=== PATIENT | female | born 1950 | race Caucasian/White ===

== ENCOUNTER 2022-04-04 18:47 | Emergency (ER) | payer MEDICARE, OTHER ==
[2022-04-04] MEDS ORDERED: ALBUTEROL NEB 2.5 MG/3 ML INH STA (19:20)
[2022-04-04] MEDS ORDERED: ONDANSETRON 4 MG/2 ML VIAL IVP STA (19:22)
--- NOTE | 2022-04-04 19:22 | ED Physician Documentation ---
PD HPI DYSPNEA - Stated complaint Stated Complaint: SOA/VOM/IRREGULAR HEARTBEAT - Chief complaint Chief Complaint: Cardiac - History obtained from History obtained from: Patient - Additional information Additional information: 72-year-old woman has been having trouble with palpitations for the last few months has not had it worked up. It is intermittent and occasional and fleeting when it happens. She got back from [facility] yesterday after a trip. Tested COVID negative yesterday. Today she was in her usual state of health until 3 PM sitting at her desk when she suddenly developed severe chills and shortness of breath. It is not associated with chest pain or increase in her palpitations. No pedal edema or calf pain. No personal history of coronary disease but risk factors include a younger brother who had coronary disease and hypertension and hypercholesterolemia. Review of Systems Ten Systems: 10 systems reviewed and negative Constitutional: reports: Chills Nose: denies: Rhinorrhea / runny nose Cardiac: denies: Chest pain / pressure Respiratory: reports: Dyspnea. denies: Cough PD PAST MEDICAL HISTORY - Present Medications Home Medications: Ambulatory Orders Medication Instructions Recorded Confirmed Albuterol Sulf [Ventolin Hfa 1 - 2 puffs INH Q4HR PRN #1 inhaler 04/04/22 Inhaler] Atorvastatin Calcium 40 mg PO DAILY 04/04/22 04/04/22 Losartan [Cozaar] 50 mg PO DAILY #60 tablet 04/04/22 hydroCHLOROthiazide [Hydrodiuril] 12.5 mg PO DAILY 04/04/22 04/04/22 - Allergies Allergies/Adverse Reactions: Allergies Allergy/AdvReac Type Severity Reaction Status Date / Time codeine Allergy Unknown Verified 04/04/22 19:02 PD ED PE NORMAL - Vitals Vital signs reviewed: Yes - General General: Alert and oriented X 3, No acute distress - HEENT HEENT: PERRL, EOMI - Neck Neck: Supple, no meningeal sign, No bony TTP - Cardiac Cardiac: No murmur, Other (Frequent PVCs on the monitor corresponding to ectopy by physical exam.) - Respiratory Respiratory: No respiratory distress, Other (Mild diffuse expiratory wheezing especially at the bases) - Abdomen Abdomen: Non tender - Back Back: No CVA TTP, No spinal TTP - Derm Derm: Normal color, Warm and dry - Extremities Extremities: No edema, No calf tenderness / cord - Neuro Neuro: Alert and oriented X 3, Normal speech Results - Vitals Vitals: Vital Signs - 24 hr 04/04/22 04/04/22 04/04/22 19:03 19:07 19:37 Temperature 37.2 C 37.2 C Heart Rate 77 77 66 Respiratory 21 21 17 Rate Blood Pressure 149/99 H 149/99 H 154/87 H O2 Saturation 100 100 100 04/04/22 04/04/22 04/04/22 19:47 20:07 20:30 Temperature Heart Rate 74 68 72 Respiratory 16 14 22 Rate Blood Pressure 157/72 H 164/74 H O2 Saturation 100 99 04/04/22 21:26 Temperature Heart Rate 69 Respiratory 16 Rate Blood Pressure 170/69 H O2 Saturation 98 Oxygen O2 Source Room air - EKG (time done) 1910 Rate: Rate (enter#) (86) Rhythm: NSR (With frequent PVCs) [place]: Normal Intervals: Normal [place] QRS: Normal Ischemia: Normal ST segments - Labs Labs: Laboratory Tests 04/04/22 04/04/22 04/04/22 19:38 19:38 19:38 WBC 5.3 RBC 5.01 Hgb 15.8 Hct 45.9 MCV 91.6 MCH 31.5 H MCHC 34.4 RDW 11.9 L Plt Count 179 MPV 10.6 Neut # (Auto) 4.0 Lymph # (Auto) 0.9 L [place] # (Auto) 0.3 Eos # (Auto) 0.0 Baso # (Auto) 0.0 Absolute Nucleated RBC 0.00 Nucleated RBC % 0.0 Sodium 135 Potassium 2.9 L Chloride 102 Carbon Dioxide 19 L Anion Gap 14.0 H BUN 16 Creatinine 0.6 Estimated GFR (MDRD) 98 Glucose 160 H Calcium 9.1 Magnesium 1.8 Total Bilirubin 1.5 H AST 21 ALT 17 Alkaline Phosphatase 61 Troponin I High Sens 4.9 Total Protein 7.0 Albumin 4.1 Globulin 2.9 Albumin/Globulin Ratio 1.4 Lipase 32 TSH 04/04/22 19:38 WBC RBC Hgb Hct MCV MCH MCHC RDW Plt Count MPV Neut # (Auto) Lymph # (Auto) [place] # (Auto) Eos # (Auto) Baso # (Auto) Absolute Nucleated RBC Nucleated RBC % Sodium Potassium Chloride Carbon Dioxide Anion Gap BUN Creatinine Estimated GFR (MDRD) Glucose Calcium Magnesium Total Bilirubin AST ALT Alkaline Phosphatase Troponin I High Sens Total Protein Albumin Globulin Albumin/Globulin Ratio Lipase TSH 0.79 PD MEDICAL DECISION MAKING - ED course ED course: She had a chest cold, s/p tx with amox. Now wheezing with SOA after long plance trip. No e/o ACS. A lot of PVCs and likely subacute given the complaint is subacute and worse d/t hypokalemia. PE considered given proximity to plane travel, (back from [facility] yesterday), but CT PA neg. Given both IV and PO KCL. SOA better p albuterol neb. Departure - Departure Disposition: Home, Self Care Clinical Impression: PVC (premature ventricular contraction), Wheezes Dyspnea Qualifiers: Dyspnea type: other forms of dyspnea Qualified Code(s): R06.09 - Other forms of dyspnea Condition: Good Record reviewed to determine appropriate education?: Yes Instructions: ED Dyspnea Shortness of Breath Prescriptions: Albuterol Sulf [Ventolin Hfa Inhaler] 1 - 2 puffs INH Q4HR PRN #1 inhaler PRN Reason: Shortness Of Air/Wheezing Losartan [Cozaar] 50 mg PO DAILY #60 tablet Comments: As discussed, the only major pertinent positive finding tonight was a fairly low potassium level which I think is contributing to the premature ventricular cont ractions you have been having. This is likely multifactorial from the vomiting but also related to your hydrochlorothiazide. As such we are switching your blood pressure medicine and I would stop the hydrochlorothiazide and instead I am prescribing losartan. Also since he got relief from the breathing treatment here I am prescribing an albuterol inhaler. Stop the hydrochlorothiazide. Follow-up with your new primary care physician as soon as possible. Return if worse. [facility] [place].
[2022-04-04 19:49] LABS: BASOPHILS % (AUTO) 0.2 %; EOSINOPHILS % (AUTO) 0.8 %; HCT - HEMATOCRIT 45.9 % (37.0-47.0); HGB - HEMOGLOBIN 15.8 g/dL (12.0-16.0); LYMPHOCYTES # (AUTO) 0.9 10^3/uL (1.5-3.5); LYMPHOCYTES % (AUTO) 16.5 %; MEAN CORPUSCULAR HEMOGLOBIN 31.5 pg (27.0-31.0); MEAN CORPUSCULAR HGB CONC 34.4 g/dL (32.0-36.0); MEAN CORPUSCULAR VOLUME 91.6 fL (81.0-99.0); MEAN PLATELET VOLUME 10.6 fL (7.9-10.8); MONOCYTES # (AUTO) 0.3 10^3/uL (0.0-1.0); MONOCYTES % (AUTO) 6.1 %; NEUTROPHILS % (AUTO) 76.2 %; PLT - PLATELET COUNT 179 10^3/uL (130-450); RED BLOOD COUNT 5.01 10^6/uL (4.20-5.40); RED CELL DISTRIBUTION WIDTH 11.9 % (12.0-15.0); WHITE BLOOD COUNT 5.3 x10^3/uL (4.8-10.8)
[2022-04-04 20:01] LABS: ALBUMIN 4.1 g/dL (3.2-5.5); ALBUMIN/GLOBULIN RATIO 1.4 (1.0-2.2); BILIRUBIN,TOTAL 1.5 mg/dL (0.2-1.0); CALCIUM 9.1 mg/dL (8.5-10.3); CREATININE 0.6 mg/dL (0.4-1.0); MAGNESIUM 1.8 mg/dL (1.7-2.8); POTASSIUM 2.9 mmol/L (3.5-5.0)
[2022-04-04] MEDS ORDERED: IOVERSOL 320 100 ML VIAL IVP ONE ×2 (20:34→21:10)
[2022-04-04] MEDS ORDERED: POTASSIUM CHLORIDE 20 MEQ TABLET PO STA (21:06)
[2022-04-04] MEDS ORDERED: POTASSIUM CHLOR 10 MEQ/100 ML 10 MEQ/100 ML BAG IV STA (21:06)
--- NOTE | 2022-04-04 21:52 | CT Report ---
PROCEDURE: ANGIO CHEST W/WO INDICATIONS: dyspnea pe protocol CONTRAST: IV CONTRAST: Optiray 320 ml: 80 PO CONTRAST: *NO PO CONTRAST TECHNIQUE: After the administration of intravenous contrast, 2 mm axial images were acquired from the pulmonary apices to the posterior costophrenic angles during the arterial phase. In addition, 1 mm lung kernel and 5 mm soft tissue kernel reconstructions were performed. 3-dimensional coronal oblique maximum int ensity projection (MIP) reformats, 8 mm axial MIP, and 5 mm coronal and sagittal MPR reformats were t hen performed through the thorax. For radiation dose reduction, the following was used: automated exp osure control, adjustment of mA and/or kV according to patient size. COMPARISON: None. FINDINGS: Image quality: Excellent. Pulmonary arteries: Pulmonary arteries demonstrate no intraluminal filling defects to suggest centra l pulmonary embolism. Lungs and pleura: Lungs are clear without acute consolidation. No pleural effusions or pneumothorax . Central and peripheral airways are patent. Mediastinum: Heart size is normal, without pericardial effusion. No mediastinal or hilar adenopathy . Thoracic aorta is normal in caliber and enhancement. Esophagus is normal in caliber, without hiat al hernia. Bones and chest wall: No suspicious bony lesions. Ribs and thoracic spine appear intact throughout. No axillary or supraclavicular adenopathy. Thyroid demonstrates no discrete nodules. Abdomen: Visu alized upper abdominal solid organs appear normal in the early arterial phase of enhancement. IMPRESSION: 1. No evidence of pulmonary embolism. 2. No acute airspace consolidation. Reviewed by: Scott Wallis MD on 04/04/2022 9:51 PM PDT Approved by: Scott Wallis MD on 04/04/2022 9:51 PM PDT Station ID: [id number]
[2022-04-04] MEDS ORDERED: SODIUM CHLORIDE 0.9% 1,000 ML IV STA (22:05)
[2022-04-04] MEDS ORDERED: SODIUM CHLORIDE 0.9% 250 ML IV STA (22:05)
[2022-04-05 00:58] VITALS: BP 140/74
== END 2022-04-04 23:55 | disposition home or self-care (01) ==
LOC: ED 18:47
DX: I49.3 Ventricular premature depolarization (principal); R06.09 Other forms of dyspnea
CPT/HCPCS: 36415; 71275; 80053; 83690; 83735; 84443; 84484; 85025; 93005; 94640; 94664; 96365; 96366; 96375; 99284; A9270; Q9967

== ENCOUNTER 2022-06-06 12:37 | Outpatient (CLI) | payer MEDICARE, OTHER ==
--- NOTE | 2022-06-12 10:21 | Mammography Report ---
BILATERAL DIGITAL SCREENING MAMMOGRAM 3D/2D: 06/06/2022 CLINICAL: Routine screening. Additional films were requested but not obtained. The tissue of both breasts is heterogeneously dens e. This may lower the sensitivity of mammography. There is an oval focal asymmetry in the right breast at 10 o'clock middle depth. No other significant masses, calcifications, or other findings are seen in either breast. IMPRESSION: INCOMPLETE: NEED PRIOR STUDIES FOR COMPARISON The oval focal asymmetry in the right breast is indeterminate. Additional views with possible ultras ound are recommended. Based on the Tyrer Cuzick model (a risk assessment model) the patients lifetime risk is 5.7% and her 10 year risk is 4.7%. According to the ACR, ACS, and NCCN guidelines, an annual breast MRI exam doug g with mammogram is recommended if the patients lifetime risk is 20% or greater. This exam was interpreted at Station ID: [id number]. NOTE: For mammograms, a report in lay terms will be sent to the patient. Approximately 15% of breast malignancies will not be visualized mammographically. In the management of a palpable breast mass, a negative mammogram must not discourage biopsy of a clinically suspicious lesion. Electronically Signed By: Royer bael/yaima:06/12/2022 08:17:02 ACR BI-RADS Category 0 Need prior studies for comparison [id number] PARENCHYMAL PATTERN: (D) - The breast(s) demonstrate(s) heterogeneously dense fibroglandular parwestony betsy. BI-RADS CATEGORY: (0) - 0 Mammo and [place] [id number] Immediate follow-up LATERALITY: (R)
== END 2022-06-06 12:38 | disposition home or self-care (01) ==
LOC: DI.N 12:37
PROVIDERS: ATTEND Physician Assistant
DX: Z12.31 Encounter for screening mammogram for malignant neoplasm of breast (principal); R92.8 Other abnormal and inconclusive findings on diagnostic imaging of breast

== ENCOUNTER 2022-08-28 11:50 | Outpatient (CLI) | payer MEDICARE, OTHER ==
[2022-08-28 12:12] LABS: BASOPHILS % (AUTO) 0.4 %; EOSINOPHILS # (AUTO) 0.1 10^3/uL (0.0-0.7); EOSINOPHILS % (AUTO) 1.1 %; HCT - HEMATOCRIT 44.4 % (37.0-47.0); HGB - HEMOGLOBIN 14.3 g/dL (12.0-16.0); LYMPHOCYTES # (AUTO) 1.3 10^3/uL (1.5-3.5); LYMPHOCYTES % (AUTO) 22.3 %; MEAN CORPUSCULAR HEMOGLOBIN 31.4 pg (27.0-31.0); MEAN CORPUSCULAR HGB CONC 32.2 g/dL (32.0-36.0); MEAN CORPUSCULAR VOLUME 97.6 fL (81.0-99.0); MONOCYTES # (AUTO) 0.4 10^3/uL (0.0-1.0); MONOCYTES % (AUTO) 6.2 %; NEUTROPHILS % (AUTO) 69.8 %; RED BLOOD COUNT 4.55 10^6/uL (4.20-5.40)
[2022-08-28 12:26] LABS: ALBUMIN 4.1 g/dL (3.2-5.5); ALBUMIN/GLOBULIN RATIO 1.5 (1.0-2.2); ALKALINE PHOSPHATASE 86 IU/L (42-121); ALT ALANINE AMINOTRANSFERASE 34 IU/L (10-60); AST ASPARTATE AMINOTRANSFERASE 29 IU/L (10-42); BILIRUBIN,TOTAL 1.1 mg/dL (0.2-1.0); BUN - BLOOD UREA NITROGEN 17 mg/dL (6-20); CALCIUM 9.1 mg/dL (8.5-10.3); CARBON DIOXIDE - CO2 25 mmol/L (21-32); CHLORIDE 102 mmol/L (101-111); CHOL/HDL RATIO 2.7 (<4.4); CHOLESTEROL 126 mg/dL; CREATININE 0.7 mg/dL (0.4-1.0); GFR - MDRD 82 (>89); GLUCOSE 94 mg/dL (70-100); HDL CHOLESTEROL 47 mg/dL; LDL CHOLESTEROL,CALCULATED 69 mg/dL; LDL/HDL RATIO 1.5 (<4.4); POTASSIUM 3.6 mmol/L (3.5-5.0); SODIUM 136 mmol/L (135-145); TOTAL PROTEIN 6.9 g/dL (6.7-8.2); TRIGLYCERIDES 48 mg/dL; VLDL CHOLESTEROL 10 mg/dL
[2022-08-28 13:09] LABS: WHITE BLOOD COUNT 5.7 x10^3/uL (4.8-10.8)
[2022-08-29 05:10] LABS: HCV AB <0.1 s/co ratio (0.0-0.9)
== END 2022-08-28 11:51 | disposition home or self-care (01) ==
LOC: LAB 11:50
PROVIDERS: ATTEND Internal Medicine
DX: I10 Essential (primary) hypertension (principal); R42 Dizziness and giddiness; E78.5 Hyperlipidemia, unspecified; Z11.59 Encounter for screening for other viral diseases; I47.1 Supraventricular tachycardia
CPT/HCPCS: 36415; 80053; 80061; 83721; 84443; 85025; 86803

== ENCOUNTER 2023-01-25 13:15 | Outpatient (CLI) | payer MEDICARE, OTHER | END 2023-01-25 13:30 | disposition home or self-care (01) | LOC: LAB.N 13:15 | PROVIDERS: ATTEND Physician Assistant Medical | DX: R30.0 Dysuria (principal) | CPT/HCPCS: 87086 ==

== ENCOUNTER 2023-02-12 09:28 | Outpatient (CLI) | payer MEDICARE, OTHER ==
--- NOTE | 2023-02-12 11:02 | Ultrasound Report ---
PROCEDURE: Abdomen Limited INDICATIONS: ELEVATED LIVER ENZYMES TECHNIQUE: Real-time focused scanning was performed of the abdomen, with image documentation. COMPARISONS: None. FINDINGS: Liver: Liver is normal in size and homogeneous in echotexture. Gallbladder: Cholelithiasis without evidence of acute cholecystitis. No wall thickening. Biliary ducts: Intrahepatic bile ducts are non-dilated. Extrahepatic bile duct caliber measures 9.3 mm. Normal is 6-7 mm or less in diameter, or 10 mm or less post-cholecystectomy. Pancreas: Visualized portions of the pancreas are sonographically normal. Right kidney: Normal in size and echotexture. Right kidney measures 9.9 cm long. No hydronephrosis o r nephrolithiasis. No solid masses. No complex renal cystic lesions which require follow-up. Aorta: Visualized aorta is normal in caliber at less than 3 cm. IVC: Intrahepatic inferior vena cava is patent. Miscellaneous: No free abdominal fluid. IMPRESSION: Cholelithiasis without evidence of acute cholecystitis. Distended common bile duct. Differential includes choledocholithiasis, physiologic or biliary dyskine edwin. Consider MRCP/MRI with contrast if there is concern for choledocholithiasis. Reviewed by: Memo Earl on 02/12/2023 11:01 AM PDT Approved by: Memo Earl on 02/12/2023 11:01 AM PDT Station ID: [id number]
== END 2023-02-12 09:29 | disposition home or self-care (01) ==
LOC: DI 09:28
PROVIDERS: ATTEND Internal Medicine
DX: R74.8 Abnormal levels of other serum enzymes (principal); K80.20 Calculus of gallbladder without cholecystitis without obstruction; K83.8 Other specified diseases of biliary tract

== ENCOUNTER 2023-02-15 08:49 | Day surgery (SDC) | payer MEDICARE, OTHER ==
[~2023-02-15 08:49] MED LIST: CYCLOPENTOLATE 1% OPHTH DROPS 2 ML ONE; KETOROLAC 0.45% OPHTH DROPS ONE; PHENYLEPHRINE 2.5% OPHTH 2 ML DROPS ONE; PROPARACAINE 0.5% OPHTH DROPS 15 ML ONE
[2023-02-15] MEDS ORDERED: LACTATED RINGERS 1,000 ML IV ONE (09:03)
--- NOTE | 2023-02-15 09:54 | ANESTHESIA ---
Pre-Anesthesia VS, & Labs - Diagnosis left nuclear cataract - Procedure left cataract extraction with IOL Vital Signs: Temp Pulse Resp BP Pulse Ox O2 Flow Rate 36.6 C 70 16 144/69 H 100 02/15/23 09:28 02/15/23 09:28 02/15/23 09:28 02/15/23 09:28 02/15/23 09:28 Height: 5 ft 4 in Weight (kg): 69.7 kg Body Mass Index: 26.4 BMI Classification: Overweight - NPO >8 hours - Is Patient ?: No Home Medications and Allergies Home Medications: Ambulatory Orders Triamcinolone 0.1% Cream [Kenalog 0.1% Cream] 1 applic TOP PRN PRN 02/15/23 Triamcinolone 0.1% Cream [Kenalog 0.1% Cream] 1 applic TOP PRN PRN 02/15/23 Allergies/Adverse Reactions: Allergies Allergy/AdvReac Type Severity Reaction Status Date / Time cephalexin [From Keflex] Allergy Hives Verified 02/15/23 09:41 codeine Allergy Unknown Verified 04/04/22 19:02 nitrous oxide AdvReac Unknown Verified 02/15/23 09:41 procaine [From Novocain] AdvReac Unknown Verified 02/15/23 09:41 Anes History & Medical History - Anesthetic History Anesthesia Complications: reports: No previous complications - Medical History Cardiovascular: reports: Hypertension, High cholesterol, Other Pulmonary: reports: None Gastrointestinal: reports: Cholelithiasis Urinary: reports: None Skin: reports: Psoriasis Smoking Status: Never smoker - Surgical History Gynecologic: reports: section Orthopedic: reports: Hip replacement, Knee replacement Exam General: Alert, Oriented x3 Dental: WNL Mouth Opening: Greater than 4 Fingerbreadths Neck Mobility: Normal Mallampati classification: II Respiratory: Lungs clear Cardiovascular: Regular rate Plan Anesthesia Type: MAC Consent for Procedure(s) Verified and Reviewed: Yes Code Status: Attempt Resuscitation ASA classification: 2-Mild systemic disease Is this case an emergency?: No
[2023-02-15] MEDS ORDERED: BRIMONIDINE 0.2% OPHTH DROPS 5 ML ONE (10:01)
[2023-02-15] MEDS ORDERED: EPINEPHrine 1 MG/ML AMP ONE (10:01)
[2023-02-15] MEDS ORDERED: BSS/LIDOCAINE/EPINEPHRINE 1 ML VIAL ONE (10:01)
[2023-02-15] MEDS ORDERED: TRIAMCIN/MOXIFLOX OPHTHALMIC 0.6 ML VIAL IO ONE ×2 (10:01→10:27)
[2023-02-15] MEDS ORDERED: TIMOLOL 0.5% OPHTH DROPS ONE (10:01)
[2023-02-15] MEDS ORDERED: MIDAZOLAM 2 MG/2 ML VIAL ONE (10:02)
--- NOTE | 2023-02-15 10:16 | ANESTHESIA POST OP EVALUATION ---
Anesthesia Post Eval - Post Anesthesia Eval Vitals: Last Vital Signs Temp 36.6 C 02/15/23 09:28 Pulse 70 02/15/23 09:28 Resp 16 02/15/23 09:28 BP 144/69 H 02/15/23 09:28 Pulse Ox 100 02/15/23 09:28 O2 Flow Rate CV Function Including HR & BP: Stable Pain Control: Satisfactory Nausea & Vomiting: Negative Mental Status: Baseline Respiratory Status: Airway Patent Hydration Status: Satisfactory Anesthesia Complications: None
[2023-02-15] MEDS ORDERED: BRIMONIDINE 0.2% OPHTH DROPS 5 ML OPTH ONE (10:26)
[2023-02-15] MEDS ORDERED: EPINEPHrine 1 MG/ML AMP IR ONE (10:26)
[2023-02-15] MEDS ORDERED: TIMOLOL 0.5% OPHTH DROPS OPTH ONE (10:26)
[2023-02-15] MEDS ORDERED: PROPARACAINE 0.5% OPHTH DROPS 15 ML EACHEYE ONE (10:27)
[2023-02-15] MEDS ORDERED: BSS/LIDOCAINE/EPINEPHRINE 1 ML SYRINGE IO ONE (10:27)
[2023-02-15] MEDS ORDERED: VANCOMYCIN OPHTH (TOPICAL) 10 MG/ML SYRINGE TOP ONE (10:28)
[2023-02-15] MEDS ORDERED: LACTATED RINGERS 800 ML IV ONE (10:33)
--- NOTE | 2023-02-15 10:39 | OPERATIVE REPORT ---
Operative Report - Other Other Information/Narrative: Date of Surgery: 02/15/23 Preop Dx: Visually significant cataract left eye. This was the first cataract surgery. Postop Dx: Same Procedure: Phacoemulsification with posterior chamber intraocular lens implant left eye Surgeon: Dr. Leonides Fortune Anesthesia: Monitored anesthesia care Complications: None Operative Indications: This is a 73-year-old F with progressive vision loss in the left eye due to 2-3+ nuclear sclerotic cataract. Best corrected visual acuity was 20/40 with glare to 20/50 vision in the left eye. Indications for surgery were: - Overall decrease in vision - Difficulty seeing words on a computer screen - Difficulty seeing street signs - Difficulty driving in low light or at night - Difficulty driving at night because of headlights from other vehicles - Difficulty with glare or bright lights in any situation The patient was consented at length concerning the risks and benefits of cataract surgery after which the patient expressed a desire to proceed with surgery. Operative Procedure: The patient was taken into OR#3 and placed under monitored anesthesia care. A surgical time-out was conducted confirming correct patient, correct procedure, and correct surgical site. The patient was given topical anesthesia and then prepped and draped in the usual sterile fashion. The eye was entered at the 6 and 3 oclock positions. Intracameral Shugarcaine was injected into the anterior chamber followed by a dispersive viscoelastic. A continuous-tear curvilinear capsulorhexis was performed. The nucleus was hydrodissected and phacoemulsified. The cortex was evacuated using automated infusion and aspiration. A cohesive viscoelastic was injected into the capsular bag and a 24.5 diopter intraocular lens was inserted into the bag. Infusion and aspiration were used to evacuate the viscoelastic materials from the eye. The wounds were hydrated and the eye inflated to physiologic pressure using balanced salt solution. Approximately 0.25ml of a mixture of triamcinolone and moxifloxacin was injected trans-sclerally into the vitreous in the inferotemporal quadrant using a 30 gauge cannula. An additional 0.25ml of a mixture of triamcinolone and moxifoxacin was injected subconjunctivally in the superior quadrant for infection and inflammation prophylaxis. Wound integrity was checked with Weck-Jennifer sponges. The patient was taken from the operating room in good condition and given post-op instructions.
[2023-02-15 11:01] VITALS: BP 123/53
== END 2023-02-15 08:50 | disposition home or self-care (01) ==
LOC: SDS 08:49
PROVIDERS: ATTEND Ophthalmology
DX: H25.12 Age-related nuclear cataract, left eye (principal); I10 Essential (primary) hypertension
CPT/HCPCS: 66984; A9270; J3490; J7120

== ENCOUNTER 2023-02-22 08:56 | Outpatient (CLI) | payer MEDICARE, OTHER ==
[2023-02-22 09:35] LABS: ALBUMIN 3.9 g/dL (3.2-5.5); ALKALINE PHOSPHATASE 92 IU/L (42-121); ALT ALANINE AMINOTRANSFERASE 103 IU/L (10-60); AST ASPARTATE AMINOTRANSFERASE 60 IU/L (10-42); BILIRUBIN,DIRECT 0.1 mg/dL (0.1-0.5); BILIRUBIN,TOTAL 0.8 mg/dL (0.2-1.0); CHOL/HDL RATIO 2.6 (<4.4); CHOLESTEROL 193 mg/dL; HDL CHOLESTEROL 74 mg/dL; LDL CHOLESTEROL,CALCULATED 110 mg/dL; LDL/HDL RATIO 1.5 (<4.4); TOTAL PROTEIN 6.6 g/dL (6.7-8.2); TRIGLYCERIDES 45 mg/dL; VLDL CHOLESTEROL 9 mg/dL
== END 2023-02-22 08:57 | disposition home or self-care (01) ==
LOC: LAB 08:56
PROVIDERS: ATTEND Internal Medicine
DX: K80.20 Calculus of gallbladder without cholecystitis without obstruction (principal); R74.8 Abnormal levels of other serum enzymes
CPT/HCPCS: 36415; 80061; 80076; 83721

== ENCOUNTER 2023-11-30 14:00 | Outpatient (CLI) | payer MEDICARE, OTHER | END 2023-11-30 14:15 | disposition home or self-care (01) | LOC: LAB.N 14:00 | PROVIDERS: ATTEND Physician Assistant | DX: R30.0 Dysuria (principal) | CPT/HCPCS: 87077; 87086 ==

== ENCOUNTER 2024-02-07 07:57 | Day surgery (SDC) | payer MEDICARE, OTHER ==
[2024-02-07] MEDS: LACTATED RINGERS 1,000 ML IV ONE (08:13)
[2024-02-07] MEDS: KETOROLAC 0.45% OPHTH DROPS ONE (08:13)
[2024-02-07] MEDS: PROPARACAINE 0.5% OPHTH DROPS 15 ML ONE (08:13)
[2024-02-07] MEDS: PHENYLEPHRINE 2.5% OPHTH 2 ML DROPS ONE (08:20)
--- NOTE | 2024-02-07 09:20 | ANESTHESIA ---
Pre-Anesthesia VS, & Labs - Diagnosis right eye nuclear cataract - Procedure right eye cataract extraction with IOL implant Vital Signs: Temp Pulse Resp BP Pulse Ox O2 Flow Rate 36.4 C L 74 13 122/71 99 02/07/24 08:15 02/07/24 08:15 02/07/24 08:15 02/07/24 08:15 02/07/24 08:15 Height: 5 ft 5 in Weight (kg): 71.4 kg Body Mass Index: 26.2 BMI Classification: Overweight - NPO >8 hours - Is Patient ?: No Home Medications and Allergies Allergies/Adverse Reactions: Allergies Allergy/AdvReac Type Severity Reaction Status Date / Time cephalexin [From Keflex] Allergy Intermediate Hives Verified 02/06/24 14:05 codeine AdvReac Mild Nausea Verified 02/06/24 14:05 nitrous oxide AdvReac Mild Nausea Verified 02/06/24 14:05 procaine [From Novocain] AdvReac Mild vomiting Verified 02/06/24 14:05 Anes History & Medical History - Anesthetic History Anesthesia Complications: reports: No previous complications - Medical History Cardiovascular: reports: Hypertension, Arrhythmia Pulmonary: reports: None Gastrointestinal: reports: None Urinary: reports: None Neuro: reports: None Musculoskeletal: reports: Rheumatoid arthritis Endocrine/Autoimmune: reports: None Skin: reports: None Smoking Status: Never smoker Psychosocial: reports: No issues indicated History of Cancer?: No - Surgical History Eyes Ears Nose Throat (EENT): reports: Other Gynecologic: reports: section, Dilation and currettage Orthopedic: reports: Hip replacement, Knee replacement Exam General: Alert, Oriented x3, Cooperative, No acute distress Dental: WNL Mouth Openin Fingerbreadth Neck Mobility: Normal Mallampati classification: I Thyromental Distance: 4-6 cm Mental/Cognitive Status: Alert/Oriented X3, Normal for patient Plan Anesthesia Type: MAC Consent for Procedure(s) Verified and Reviewed: Yes Code Status: Attempt Resuscitation ASA classification: 2-Mild systemic disease Is this case an emergency?: No
[2024-02-07] MEDS ORDERED: EPINEPHrine 1 MG/ML AMP ONE ×2 (09:24→09:26)
[2024-02-07] MEDS ORDERED: BRIMONIDINE 0.2% OPHTH DROPS 5 ML ONE (09:24)
[2024-02-07] MEDS ORDERED: TRIAMCIN/MOXIFLOX OPHTHALMIC 0.6 ML VIAL IO ONE (09:24)
[2024-02-07] MEDS ORDERED: BSS/LIDOCAINE/EPINEPHRINE 1 ML VIAL ONE (09:24)
[2024-02-07] MEDS ORDERED: TIMOLOL 0.5% OPHTH DROPS ONE (09:24)
[2024-02-07] MEDS: BSS/LIDOCAINE/EPINEPHRINE 1 ML SYRINGE IO ONE (09:37)
[2024-02-07] MEDS: PROPARACAINE 0.5% OPHTH DROPS 15 ML RIGHTEYE ONE (09:37)
[2024-02-07] MEDS: BRIMONIDINE 0.2% OPHTH DROPS 5 ML OPTH ONE (09:37)
[2024-02-07] MEDS: TIMOLOL 0.5% OPHTH DROPS OPTH ONE (09:37)
[2024-02-07] MEDS: EPINEPHrine 1 MG/ML AMP IR ONE (09:37)
[2024-02-07] MEDS: TRIAMCIN/MOXIFLOX OPHTHALMIC 0.6 ML VIAL IO ONE (09:37)
[2024-02-07] MEDS: VANCOMYCIN OPHTH (TOPICAL) 10 MG/ML SYRINGE TOP ONE (09:38)
[2024-02-07] MEDS ORDERED: MIDAZOLAM 2 MG/2 ML VIAL ONE (09:48)
[2024-02-07] MEDS: LACTATED RINGERS 500 ML IV ONE (10:11)
--- NOTE | 2024-02-07 10:23 | OPERATIVE REPORT ---
Operative Report - Other Other Information/Narrative: Date of Surgery: 02/07/24 Preop Dx: Visually significant cataract right eye. Cataract surgery was performed in the left eye on . Postop Dx: Same Procedure: Phacoemulsification with posterior chamber intraocular lens implant right eye Surgeon: Dr. Leonides Fortune Anesthesia: Monitored anesthesia care Complications: None Operative Indications: This is a 74-year-old F with progressive vision loss in the right eye due to 3+ nuclear sclerotic and 1+ cortical cataract. Best corrected visual acuity was 20/20 with glare to 20/200 vision in the right eye. Indications for surgery were: - Overall decrease in vision - Difficulty seeing words on a computer screen - Difficulty reading - Difficulty seeing street signs - Difficulty driving in low light or at night - Difficulty driving at night because of headlights from other vehicles - Difficulty with glare or bright lights in any situation The patient was consented at length concerning the risks and benefits of cataract surgery after which the patient expressed a desire to proceed with surgery. Operative Procedure: The patient was taken into OR#3 and placed under monitored anesthesia care. A surgical time-out was conducted confirming correct patient, correct procedure, and correct surgical site. The patient was given topical anesthesia and then prepped and draped in the usual sterile fashion. The eye was entered at the 6 and 3 oclock positions. Intracameral Shugarcaine was injected into the anterior chamber followed by a dispersive viscoelastic. A continuous-tear curvilinear capsulorhexis was performed. The nucleus was hydrodissected and phacoemulsified. The cortex was evacuated using automated infusion and aspiration. A cohesive viscoelastic was injected into the capsular bag and a 25.0 diopter intraocular lens was inserted into the bag. Infusion and aspiration were used to evacuate the viscoelastic materials from the eye. The wounds were hydrated and the eye inflated to physiologic pressure using balanced salt solution. Approximately 0.25ml of a mixture of triamcinolone and moxifloxacin was injected trans-sclerally into the vitreous in the inferotemporal quadrant using a 30 gauge cannula. An additional 0.25ml of a mixture of triamcinolone and moxifloxacin was injected subconjunctivally in the superior quadrant for infection and inflammation prophylaxis. This resulted in severing an conjunctival arteriole leaving a relatively large hematoma. However, the bleeding had stopped by the time the patient was seen in the PACU. Wound integrity was checked with Weck-Jennifer sponges. The patient was taken from the operating room in good condition and given post-op instructions.
[2024-02-07 10:50] VITALS: BP 129/74; O2SAT 100
--- NOTE | 2024-02-07 11:58 | ANESTHESIA POST OP EVALUATION ---
Anesthesia Post Eval - Post Anesthesia Eval Vitals: Last Vital Signs Temp 36.4 C L 02/07/24 10:40 Pulse 65 02/07/24 10:40 Resp 16 02/07/24 10:40 BP 129/74 02/07/24 10:40 Pulse Ox 100 02/07/24 10:40 O2 Flow Rate CV Function Including HR & BP: Stable Pain Control: Satisfactory Nausea & Vomiting: Negative Mental Status: Baseline Respiratory Status: Airway Patent Hydration Status: Satisfactory Anesthesia Complications: None
== END 2024-02-07 07:58 | disposition home or self-care (01) ==
LOC: SDS 07:57
PROVIDERS: ATTEND Ophthalmology
DX: H25.11 Age-related nuclear cataract, right eye (principal); I48.91 Unspecified atrial fibrillation; I10 Essential (primary) hypertension; Z98.42 Cataract extraction status, left eye
CPT/HCPCS: 66984; A9270; J3490; J7120